=== PATIENT | male | born 1970 | race Caucasian/White ===

== ENCOUNTER 2016-08-19 13:23 | Day surgery (SDC) | payer BC ==
[~2016-08-19 13:23] MED LIST: GLYCOPYRROLATE INJ 0.4 MG/2 ML VIAL ONE; LIDOCAINE 2% INJ-PF (20 MG/ML) 10 ML AMPUL ONE; METOCLOPRAMIDE HCL INJ/PF 10 MG/2 ML SDV ONE; ONDANSETRON HCL INJ/PF 4 MG/2 ML SDV ONE
[2016-08-19 14:33] LABS: HEMATOCRIT 45.1 % (37.9-51.0); HEMOGLOBIN 15.1 g/dL (13.5-17.0); HGB HCT DIFFERENCE 0.2; MEAN CORPUSCULAR HEMOGLOBIN 29.1 pg (27.0-33.4); MEAN CORPUSCULAR HGB CONC 33.5 g/dL (32.0-36.0); MEAN CORPUSCULAR VOLUME 87 fl (80-97); RED CELL DISTRIBUTION WIDTH 13.2 % (11.5-14.0); WHITE BLOOD COUNT 9.1 10^3/uL (4.0-10.5)
[2016-08-19 14:49] LABS: ANION GAP 10 (5-19); BLOOD UREA NITROGEN 14 mg/dL (7-20); CALCIUM 9.2 mg/dL (8.4-10.2); CARBON DIOXIDE 24 mmol/L (22-30); CHLORIDE 105 mmol/L (98-107); CREATININE RESULT 0.96 mg/dL (0.52-1.25); GLUCOSE 89 mg/dL (75-110); POTASSIUM 4.4 mmol/L (3.6-5.0); SODIUM 139.4 mmol/L (137-145)
[2016-08-19] MEDS ORDERED: MORPHINE SULFATE 10 MG/ML INJ ONE (15:38)
--- NOTE | 2016-08-19 16:24 | EKG REPORT ---
SEVERITY:- ABNORMAL ECG - SINUS RHYTHM PROBABLE LEFT VENTRICULAR HYPERTROPHY : Confirmed by: Skip Chi MD 19-Aug-2016 16:23:33
[2016-08-19] MEDS ORDERED: MIDAZOLAM 2 MG/2 ML INJ ONE (16:47)
[2016-08-19] MEDS ORDERED: PROPOFOL INJ 200 MG/20 ML VIAL IV ONE (16:47)
[2016-08-19] MEDS ORDERED: ACETAMINOPHEN 100 ML IV ONE (16:47)
[2016-08-19] MEDS ORDERED: DEXMEDETOMIDINE INJ 80 MCG/20 ML VIAL IV ONE (16:47)
[2016-08-19] MEDS ORDERED: KETAMINE HCL INJ 500 MG/10 ML VIAL ONE (16:47)
[2016-08-19] MEDS: CEFAZOLIN 2 GM/D5W RTU 2 GM/50 ML RTUPB IV PRN ×4 (16:55→22:17)
[2016-08-19] MEDS ORDERED: BUPIVACAINE HCL 0.25% /EPINEPHRINE INJ/PF 30 ML SDV ONE (17:35)
[2016-08-19] MEDS ORDERED: MEPERIDINE HCL/PF INJ 25 MG/1 ML DISP.SYRIN IV PRN (17:38)
[2016-08-19] MEDS ORDERED: PROMETHAZINE HCL INJ 25 MG/1 ML VIAL IV PRN ×2 (17:38)
[2016-08-19] MEDS ORDERED: OXYCODONE-ACETAMINOPHEN 5-325 MG TABLET PO PRN ×2 (17:38)
[2016-08-19] MEDS ORDERED: MORPHINE SULFATE 10 MG/ML INJ IV PRN (17:38)
[2016-08-19] MEDS ORDERED: FENTANYL CITRATE INJ/PF 100 MCG/2 ML AMPUL IV PRN ×3 (17:38)
--- NOTE | 2016-08-19 18:19 | Operative Report ---
Operative Report DATE OF SURGERY: 08/19/16 PREOPERATIVE DIAGNOSIS: Left displaced lateral malleolus fracture POSTOPERATIVE DIAGNOSIS: Same OPERATION: ORIF of left lateral malleolus fracture SURGEON: ESTELA DOWELL ANESTHESIA: Spinal TISSUE REMOVED OR ALTERED: None COMPLICATIONS: None ESTIMATED BLOOD LOSS: less than 10 mL INTRAOPERATIVE FINDINGS: As above PROCEDURE: Patient received 2 g of Ancef in the preoperative holding area. Patient was now taken to the operating room and induced and intubated in supine position. Once the tube was secured a thigh tourniquet was applied to left extremity. Extremity was prepped and draped in a normal surgical fashion. Timeout was done identifying the left ankle as the correct site. Esmarch was used to exsanguinate the extremity and the tourniquet was inflated to 300 mmHg. A standard lateral incision was done straight over the distal fibula. Dissection was taken down to the bone and then periosteal elevator was used to expose the fracture site and elevate the periosteum at the fracture site. Both fragments were visualized and baby Hohmann was used to retract the tissue. I was able to then reduce the fracture with reduction clamps. C-arm pictures were taken to confirm our reduction. At this point I proceeded to do my lag screw to lag the fracture. I used standard AO technique and placed a 30 mm lag screw. I released a reduction clamp and the fracture reduction held. I then applied a 6- hole plate and make sure was in a proper alignment and with C-arm. Once I was satisfied with the proximal/distal situation and the AP/lateral position of the plate I proceeded then to use the drill guide and drill the proximal hole in the plate in the distal fragment. I measured and placed a proper length screw. I repeated this with the distal hole in the plate to secure the proximal fragment. Reduction clamp was removed and the fracture stayed reduced. AP and lateral x-rays confirm there is no change in alignment. I then proceeded to fill in the remaining holes I drilling and using C-arm and measuring guide to applied appropriate screws. Once I was satisfied with my lateral fixation and final C-arm pictures were taken to show my fixation and proper length of screws and placement. At this point I proceeded to close my lateral wound with 0 Vicryl and 3-0 Vicryl and 3-0 nylon for skin. Quarter percent Marcaine without epinephrine was injected locally.Tourniquet was let down and the dressing was applied. Xeroform 4 x 4 sterile dressing followed by Sof-Rol was applied. A posterior Ortho-Glass splint with a Ortho-Glass stirrup splint was applied and overwrapped with an Josiah bandage. I held the foot in neutral and waiting until the splint hardened. At this point drapes were removed and patient was extubated and sent to PACU in stable condition.
--- NOTE | 2016-08-19 18:24 | PDOC DISCHARGE SUMMARY ---
Discharge Summary (SDC) - Discharge Final Diagnosis: ORIF of left lateral malleolus fracture Date of Surgery: 08/19/16 Discharge Date: 08/19/16 Condition: Good Treatment or Instructions: Patient instructed to call the office in follow-up in 10-14 days. Instructed to be nonweightbearing and use crutches. Rest ice and elevation. Keep splint dry clean and intact until follow-up office visit. Told to call if fever or chills develop or increased pain redness and swelling of the calf and leg. Prescriptions: Oxycodone HCl/Acetaminophen [Percocet 7.5-325 Mg Tablet] 1 - 2 each PO Q6HP PRN #60 tablet PRN Reason: Discharge Diet: As Tolerated Respiratory Treatments at Home: Deep Breathing/Coughing Discharge Activity: No Driving, Keep Legs Elevated, Other - Nonweightbearing left lower extremity Adaptive Devices on Discharge: Axillary Crutches Report the Following to Your Physician Immediately: Shortness of Breath, Vomiting, Increase in Pain, Fever over 101 Degrees, Unusual Bleeding, Redness, Swelling, Drainage-Yellow, Drainage-Green, Drainage-Foul Smelling
[2016-08-19] MEDS ORDERED: OXYCODONE HCL IR 5 MG TABLET PO PRN (18:26)
[2016-08-19] MEDS: DIPHENHYDRAMINE HCL 50 MG/ML VIAL IV PRN ×2 (20:37→20:38)
[2016-08-20 05:31] VITALS: BP 134/77
== END 2016-08-19 23:30 | disposition home or self-care (01) ==
LOC: OROUT 13:23 → 4S 20:12 → OROUT 23:30
PROVIDERS: ATTEND Orthopaedic Surgery
PROC: 0QSK04Z Reposition Left Fibula with Internal Fixation Device, Open Approach (ICD-10-PCS; principal; 2016-08-19 15:30)
DX: S82.62XA Displaced fracture of lateral malleolus of left fibula, initial encounter for closed fracture (principal); V29.9XXA Motorcycle rider (driver) (passenger) injured in unspecified traffic accident, initial encounter; G47.33 Obstructive sleep apnea (adult) (pediatric); Z88.0 Allergy status to penicillin; Z87.891 Personal history of nicotine dependence
CPT/HCPCS: 36415; 85027; 80048; 73600; 71010; 93005; 93010; 27792; C1713; J2250; J3490 ×4; J2765; J2270; J2405; J2704; J0690; J0131; 01480

== ENCOUNTER 2018-08-08 16:26 | Emergency (ER) | payer BC, OTHER ==
[2018-08-08] MEDS ORDERED: LIDOCAINE 1% INJ-PF (10 MG/ML) 30 ML SDV INJ ONE (18:31)
[2018-08-08] MEDS ORDERED: CEPHALEXIN 500 MG CAPSULE PO ONE (19:30)
--- NOTE | 2018-08-08 19:38 | ER Document Report ---
ED Foreign Body - General Chief Complaint: Foreign Body Stated Complaint: FOREIGN OBJECT UNDER NAIL Time Seen by Provider: 08/08/18 18:23 Mode of Arrival: Ambulatory Information source: Patient Notes: 48-year-old male presented to ED for complaint of splinter under the nail of his left fifth finger. He states he was reaching down to grab a sock off the floor and ran his finger against a piece of furniture causing a fingernail to run up underneath of his fingernail. Patient is alert oriented respirations regular and unlabored speaking in full sentences walks with a even steady gait. TRAVEL OUTSIDE OF THE [place] IN LAST 30 DAYS: No - HPI Location of foreign body: Hand - Left fifth finger Onset: Just prior to arrival Onset/Duration: Sudden Quality of pain: Sharp, Throbbing Severity: Moderate Pain Level: 3 Context: Other - Accidental Associated symptoms: Other - Splinter under the left fifth finger nail Exacerbated by: Denies Relieved by: Denies Similar symptoms previously: No Recently seen / treated by doctor: No - Related Data Allergies/Adverse Reactions: Penicillins Allergy (Severe, Verified 08/18/16 15:18) n and v shellfish derived Adverse Reaction (Severe, Verified 08/18/16 15:18) n and v Past Medical History - General Information source: Patient - Social History Smoking Status: Former Smoker Chew tobacco use (# tins/day): No Frequency of alcohol use: Occasional Drug Abuse: None Lives with: Family Family History: CVA, Other - Mother: AAA Patient has suicidal ideation: No Patient has homicidal ideation: No - Past Medical History Cardiac Medical History: Reports: Hx Hypertension Pulmonary Medical History: Reports: Hx Sleep Apnea EENT Medical History: Reports: None Neurological Medical History: Reports: None Endocrine Medical History: Reports: None Renal/ Medical History: Reports: None Malignancy Medical History: Reports None, Reports Hx Skin Cancer - Basal cell GI Medical History: Reports: None Musculoskeletal Medical History: Reports None, Reports Hx Musculoskeletal Trauma Skin Medical History: Reports None Psychiatric Medical History: Reports: None Traumatic Medical History: Reports: Hx Fractures - Left ankle Infectious Medical History: Reports: None Past Surgical History: Reports: Hx Orthopedic Surgery - Left ankle fracture, Other - Basal cell skin cancer removed - Immunizations Immunizations up to date: Yes Hx Diphtheria, Pertussis, Tetanus Vaccination: Yes Review of Systems - Review of Systems Constitutional: No symptoms reported EENT: No symptoms reported Cardiovascular: No symptoms reported Respiratory: No symptoms reported Gastrointestinal: No symptoms reported Genitourinary: No symptoms reported Male Genitourinary: No symptoms reported Musculoskeletal: No symptoms reported Skin: Other - Splinter under the fingernail of the left fifth finger Hematologic/Lymphatic: No symptoms reported Neurological/Psychological: No symptoms reported -: Yes All other systems reviewed and negative Physical Exam - Vital signs Vitals: Temp Pulse Resp BP Pulse Ox 98.2 F 70 14 153/103 H 96 08/08/18 16:34 08/08/18 16:34 08/08/18 16:34 08/08/18 16:34 08/08/18 16:34 Interpretation: Normal - General General appearance: Appears well, Alert - HEENT Head: Normocephalic, Atraumatic Eyes: Normal Pupils: PERRL - Respiratory Respiratory status: No respiratory distress Chest status: Nontender Breath sounds: Normal Chest palpation: Normal - Cardiovascular Rhythm: Regular Heart sounds: Normal auscultation Murmur: No - Abdominal Inspection: Normal Distension: No distension Bowel sounds: Normal Tenderness: Nontender Organomegaly: No organomegaly - Back Back: Normal, Nontender - Extremities General upper extremity: Normal inspection, Nontender, Normal color, Normal ROM, Normal temperature General lower extremity: Normal inspection, Nontender, Normal color, Normal ROM, Normal temperature, Normal weight bearing. No: Meredith's sign - Neurological Neuro grossly intact: Yes Cognition: Normal Orientation: AAOx4 Har[place] Coma Scale Eye Opening: Spontaneous Francisco Coma Scale Verbal: Oriented [place] Coma Scale Motor: Obeys Commands Francisco Coma Scale Total: 15 Speech: Normal Motor strength normal: LUE, RUE, LLE, RLE Sensory: Normal - Psychological Associated symptoms: Normal affect, Normal mood - Skin Skin Temperature: Warm Skin Moisture: Dry Skin Color: Normal Location of irregularity: Extremities - Splint under the left fifth fingernail Irregularity with: Swelling, Tenderness Course - Re-evaluation Re-evalutation: 08/08/18 20:25 Patient soaked his finger for 15 minutes and Shur-Clens and warm water then his finger was cleaned well with Shur-Clens see procedure note. Patient tolerated well. Patient was instructed to follow-up with his primary doctor concerning his blood pressure. He states that usually goes down as soon as he leaves the hospital but if it stays up he knows that he needs to follow-up with his primary doctor. He also needs to follow-up within 2-3 days for his removal of splinter to ensure there is no signs or symptoms of infection. Patient was instructed to return to the ED for any fever chills or signs of infection to this area. Patient was started on Keflex. - Vital Signs Vital signs: Temp Pulse Resp BP Pulse Ox 98.2 F 70 14 153/103 H 96 08/08/18 16:34 08/08/18 16:34 08/08/18 16:34 08/08/18 16:34 08/08/18 16:34 Procedures - Additional Procedures Foreign body from under the fingernail Time performed: 19:10 Additional Procedures: Other - Eft hand soaked in warm water and Shur-Clens then cleaned well with Shur-Clens, finger block with 5 cc 1% lidocaine to left fifth finger then local lidocaine 1% 2 cc given around the fingernail. Small 1/4 cm lateral edge of the fingernail removed then the splinter was removed. Bacitracin finger gauze was applied to the finger and patient was started on Keflex. Discharge - Discharge Clinical Impression: Splinter under left fifth finger nail Condition: Stable Disposition: HOME, SELF-CARE Additional Instructions: You were seen today for a splinter under your left fifth finger. A small part of your finger now has been removed in order to remove the splinter. SOAP CLEANSING: Gently wash the wound daily using a mild soap (like Ivory, Phisoderm, Neutrogena). Use warm water, rubbing gently until all debris, ooze, and crusting have been washed from the wound. Allow to dry briefly (about 10 minutes) after cleaning. Repeat this cleansing at least three times a day for the first two days and then once or twice a day. ANTIBIOTIC OINTMENT PROTECTION: Your wounds are such that dressing them is not practical or optional. After cleansing, you should apply a thin coating of antibiotic ointment (Bacitracin, not Neosporin) to the wounds at least three times daily. This lessens infection risk, and may decrease the amount of scarring. Use a q-tip or dull butter knife, not your finger, to apply this ointment. Any debris or ooze which builds up in the ointment should be gently rubbed off with a sterile gauze pad. Harder crusting may need to be gently scrubbed off with a clean wash cloth with soap and warm water, perhaps applying a warm, wet wash cloth to the wound for ten minutes first. Development of redness, severe itching, or blistering may mean allergy to the ointment. See the doctor. Cephalexin The antibiotic you've been prescribed is a member of the cephalosporin class. This type of antibiotic covers a wide variety of infections, including those of the skin, lungs, and urinary tract. It's useful for staph infections. This antibiotic is slightly similar to the penicillin family. In rare cases, a person who is allergic to penicillin will also be allergic to this medication. If you have had a severe allergic reaction to penicillin, and have not taken this antibiotic since that time, notify your doctor. Antibiotics which cover many germs ("broad spectrum" antibiotics) are more likely to cause diarrhea or "yeast" infections. Women prone to vaginal yeast problems may suffer an attack after taking this antibiotic. In infants, oral thrush (white spots "stuck" on the cheek) or yeast diaper rash may result. See your doctor if these problems occur. Call at once if you develop itching, hives, shortness of breath, or lightheadedness. FOLLOW-UP CARE: If you have been referred to a physician for follow-up care, call the physicians office for an appointment as you were instructed or within the next two days. If you experience worsening or a significant change in your symptoms, notify the physician immediately or return to the Emergency Department at any time for re-evaluation. Prescriptions: Cephalexin Monohydrate [Keflex 500 mg Capsule] 500 mg PO Q6H 5 Days capsule Forms: Elevated Blood Pressure, Return to Work Referrals: JOSE MANUEL MORALES MD [Primary Care Provider] - Follow up in 3-5 days
[2018-08-08 20:24] VITALS: BP 151/100
== END 2018-08-08 19:50 | disposition home or self-care (01) ==
LOC: ER 16:26
DX: S60.457A Superficial foreign body of left little finger, initial encounter (principal); W45.8XXA Other foreign body or object entering through skin, initial encounter; Y93.89 Activity, other specified; I10 Essential (primary) hypertension; Z88.0 Allergy status to penicillin; Z91.013 Allergy to seafood; Z87.891 Personal history of nicotine dependence
CPT/HCPCS: 99283; 64450; J3490

== ENCOUNTER 2019-11-06 20:15 | Emergency (ER) | payer BC, OTHER ==
[2019-11-06 22:04] LABS: APPEARANCE,URINE CLEAR; BILIRUBIN,URINE NEGATIVE (NEGATIVE); COLOR,URINE YELLOW; GLUCOSE, URINE NEGATIVE (NEGATIVE); KETONES,URINE NEGATIVE (NEGATIVE); LEUKOCYTE ESTERASE,URINE NEGATIVE (NEGATIVE); NITRITE,URINE NEGATIVE (NEGATIVE); PROTEIN,URINE NEGATIVE (NEGATIVE); URINE SPECIFIC GRAVITY 1.014; UROBILINOGEN,URINE NEGATIVE mg/dL (<2.0)
[2019-11-06] MEDS ORDERED: METHOCARBAMOL 750 MG TABLET PO ONE (22:51)
--- NOTE | 2019-11-06 22:57 | ER Document Report ---
ED General - General Chief Complaint: Flank Pain Stated Complaint: COUGH Time Seen by Provider: 11/06/19 20:54 Primary Care Provider: KARINA DAVIS MD [Primary Care Provider] - Follow up as needed Notes: 49-year-old male presents emergency department stating that he has bilateral pain around his kidneys that worsens every time he moves. States that is actually been going on intermittently for years every morning when he wakes up however most mornings it will go away after he takes a hot shower and today it still has not gone away. Denies any penile discharge, denies any dysuria, denies any fevers. Denies any new numbness or tingling, has chronic numbness in his left foot after a surgery. Denies any saddle anesthesia, denies any bowel or bladder dysfunction. Denies any fevers. Denies any traumatic injury to his back. TRAVEL OUTSIDE OF THE [place] IN LAST 30 DAYS: No - Related Data Allergies/Adverse Reactions: Penicillins Allergy (Severe, Verified 08/18/16 15:18) n and v shellfish derived Adverse Reaction (Severe, Verified 08/18/16 15:18) n and v Home Medications: Diclofenac Past Medical History - General Information source: Patient - Social History Smoking Status: Former Smoker Frequency of alcohol use: Occasional Drug Abuse: None Family History: CVA, Other - Mother: AAA Patient has suicidal ideation: No Patient has homicidal ideation: No - Past Medical History Cardiac Medical History: Reports: Hx Hypertension Denies: Hx Coronary Artery Disease, Hx Heart Attack Pulmonary Medical History: Reports: Hx COPD - sleep apnea, Hx Sleep Apnea Denies: Hx Asthma, Hx Bronchitis, Hx Pneumonia Neurological Medical History: Denies: Hx Cerebrovascular Accident, Hx Seizures Renal/ Medical History: Denies: Hx Peritoneal Dialysis Malignancy Medical History: Reports Hx Skin Cancer - Basal cell Musculoskeletal Medical History: Denies Hx Arthritis, Reports Hx Musculoskeletal Trauma Psychiatric Medical History: Denies: Hx Depression Traumatic Medical History: Reports: Hx Fractures - Left ankle Past Surgical History: Reports: Hx Orthopedic Surgery - Left ankle fracture, Other - Basal cell skin cancer removed - Immunizations Immunizations up to date: Yes Hx Diphtheria, Pertussis, Tetanus Vaccination: Yes Review of Systems - Review of Systems Constitutional: No symptoms reported Gastrointestinal: No symptoms reported Musculoskeletal: See HPI Neurological/Psychological: See HPI - Chronic tingling left foot -: Yes All other systems reviewed and negative Physical Exam - Vital signs Vitals: Temp Pulse Resp BP Pulse Ox 98.2 F 69 18 188/105 H 98 11/06/19 20:20 11/06/19 20:20 11/06/19 20:20 11/06/19 20:20 11/06/19 20:20 Interpretation: Hypertensive - Notes Notes: GENERAL: Alert, interacts well. No acute distress. HEAD: Normocephalic, atraumatic EYES: Pupils equal, round and reactive to light, extraocular movements intact. ENT: Oral mucosa moist, tongue midline. NECK: Full range of motion, supple, trachea midline. LUNGS: Clear to auscultation bilaterally, no wheezes, rales or rhonchi, no respiratory distress. HEART: Regular rate and rhythm, no murmurs, gallops, rubs. ABDOMEN: Soft, nontender, nondistended, bowel sounds present in all 4 quadrants. EXTREMITIES: Moves all 4 extremities spontaneously, no edema, radial and dorsalis pedis pulses 2/4 bilaterally. No cyanosis. BACK: No midline bony tenderness to palpation, no step-offs or deformities. NEUROLOGICAL: Alert and oriented x3, normal speech, patellar DTRs 2+ bilaterally. 5 out of 5 great toe raising strength, normal gait, no saddle anesthesia, negative straight leg raising test bilaterally. PSYCH: Normal mood, normal affect. SKIN: Warm, Dry, normal turgor, no rashes or lesions noted. Course - Re-evaluation Re-evalutation: 11/06/19 22:54 Urinalysis unremarkable. Likely muscle spasm. Treat with Robaxin. No red flag symptoms for cauda equina or acutely impinged spinal nerves. - Vital Signs Vital signs: Temp Pulse Resp BP Pulse Ox 98.2 F 69 18 188/105 H 98 11/06/19 20:20 11/06/19 20:20 11/06/19 20:20 11/06/19 20:20 11/06/19 20:20 Discharge - Discharge Clinical Impression: Bilateral flank pain Condition: Stable Disposition: HOME, SELF-CARE Additional Instructions: Today there is no sign of kidney stone or kidney infection. I suspect the pain in your back around your kidneys is coming from muscle spasm. Warm compresses can help. Please use ibuprofen (Motrin or Advil) 600-800 mg every 8 hours as needed for pain or fever. You may also use acetaminophen (Tylenol) 1000 mg every 4-6 hours as needed for pain or fever. Please be aware that many medications contain acetaminophen, do not exceed a total of 1000 mg of acetaminophen every 6 hours. I have prescribed Robaxin, this is a muscle relaxer. You may take 1 to 2 tablets every 8 hours as needed for pain. If after taking it for several days you notice that it does not make you the least bit sleepy or tired or confused you may continue to do your job as usual including driving. If you develop new numbness or tingling in your legs, loss of sensation between your legs, loss of control of your bowels or your bladder or inability to use your feet the way you want to please return to the emergency department immediately. For the elevations you have noticed in your blood pressure when you take the diclofenac please keep a record of your daily blood pressure, your pain symptoms and whether or not you have taken any diclofenac. Please then discuss this with your primary care physician to see if they may wish to change you to a different anti-inflammatory. Prescriptions: Methocarbamol [Robaxin 750 mg Tablet] 1 - 2 tab PO Q8HP PRN #40 tablet PRN Reason: Referrals: KARINA DAVIS MD [Primary Care Provider] - Follow up as needed
[2019-11-06 23:02] VITALS: BP 155/96
== END 2019-11-06 23:11 | disposition home or self-care (01) ==
LOC: ER 20:15
DX: R10.9 Unspecified abdominal pain (principal); R05 Cough; I10 Essential (primary) hypertension; Z88.0 Allergy status to penicillin; Z91.013 Allergy to seafood
CPT/HCPCS: 99284; 81001; J3490

== ENCOUNTER → 2020-08-13 | Outpatient (CLI) | payer BC ==
[~2020-08-13] MED LIST changes: -GLYCOPYRROLATE INJ 0.4 MG/2 ML VIAL ONE; -LIDOCAINE 2% INJ-PF (20 MG/ML) 10 ML AMPUL ONE; -METOCLOPRAMIDE HCL INJ/PF 10 MG/2 ML SDV ONE; -ONDANSETRON HCL INJ/PF 4 MG/2 ML SDV ONE; +REGADENOSON INJ 0.4 MG/5 ML DISP.SYRIN IV ONE
--- NOTE | 2020-08-13 12:40 | DRAGON STRESS TEST REPORT ---
Pharmacological nuclear stress test Date: August 13, 2020 Referring physician: Anjana Gray NP Performing physician: Gary Fong MD Indication: Chest pain Clinical history 50 year-old with medical history significant for systemic hypertension, sleep apnea, nicotine dependence in remission who presented to the office with complaints of left-sided chest pain. We decided to proceed with pharmacological nuclear stress test Procedure The patient presented to the stress lab. Initially rest images were obtained according to standard protocol after the injection of 14.99 millicurie technetium 99m sestamibi. Subsequently the patient underwent pharmacological stress utilizing 0.4 mg of regadenoson intravenously. The patient's EKG and vital signs were monitored throughout the procedure. Subsequently patient was injected with with 44.1 millicuries of technetium 99m sestamibi. After a period of rest, stress images were obtained according to standard protocol. EKG showed sinus rhythm at beats per minute. The patient's stress EKG did not show any evidence for myocardial ischemia. There were no arrhythmias observed. Raw as well as processed rest and stress images were reviewed. There was mild to moderate gut uptake which did not interfere with the study. The rest and stress images show uniform uptake of radioactive isotope without any reversible defects to suggest myocardial ischemia or myocardial infarction. There is evidence of diaphragmatic attenuation on this study. There is normal contractility post-rest. The calculated ejection fraction is 56 %. The TID ratio is 1.05. Conclusion The stress EKG is negative for myocardial ischemia There is no scintigraphic evidence of myocardial infarction or ischemia provoked by pharmacological stress. There is normal contractility post-stress. The gated left ventricular ejection fraction is 56 %. The patient will be given an appointment to discuss these results. [facility]
== END ==
LOC: RAD 07:12
PROVIDERS: ATTEND Internal Medicine
DX: R07.9 Chest pain, unspecified (principal); I10 Essential (primary) hypertension; I25.9 Chronic ischemic heart disease, unspecified; G47.30 Sleep apnea, unspecified; F17.211 Nicotine dependence, cigarettes, in remission
CPT/HCPCS: 93017; 78452; A9500; J2785; Q9969